=== PATIENT | male | born 1980 | race Caucasian/White ===

== ENCOUNTER 2020-06-26 22:23 | Emergency (ER) | payer BC, SELFPAY ==
[2020-06-26] VITALS (12 sets, daily range): BP systolic 113–136; BP diastolic 81–99; PULSE 85–96; RESP 16–28; TEMP 36.7; O2SAT 95–100
--- NOTE | ~2020-06-26 | XR_ITS ---
EXAMINATION: XR chest 1V portable DATE: 06/26/2020 22:47 INDICATION: Chest pain. Left arm pain. TECHNIQUE: A single frontal view of the chest was obtained. COMPARISON: None. FINDINGS: The chest demonstrates clear lungs without pneumonia, pleural effusion, or pneumothorax. Th e heart size is normal. IMPRESSION: 1. No acute cardiopulmonary disease. Reviewed, dictated and finalized at location A. R PROFESSIONAL ENGINEER
--- NOTE | 2020-06-26 22:26 | ECG_ITS ---
Measurements Intervals [place] Rate: 85 P: 59 IA: 112 QRS: 37 QRSD: 106 T: -2 QT: 343 QTc: 410 Interpretive Statements SINUS RHYTHM WITH SHORT IA INTERVAL MINIMAL Q WAVES- INFERIOR LEADS NONSPECIFIC T-WAVE ABNORMALITY- INFERIOR LEADS BASELINE WANDER- III, AVF, V4-V6 BORDERLINE ECG Electronically Signed On 06-27-2020 6:47:22 [employer]OT TAG INSERTER by Tarun Lema D.O.
[2020-06-26 22:42] LABS: Basophils Absolute Auto 0.1 K/mm3 (0.0-0.1); Basophils Percent Auto 0.5 % (0.2-1.2); Eosinophils Absolute Auto 0.1 K/mm3 (0-0.3); Eosinophils Percent Auto 1.3 % (0-4.4); Hematocrit 45.6 % (42.0-52.0); Hemoglobin 15.2 g/dL (14.0-18.0); Immature Granulocyte Absolute 0.04 K/mm3 (0.00-0.031); Immature Granulocyte Percent A 0.4 % (0-0.5); Lymphocytes Absolute Auto 3.29 K/mm3 (0.9-3.2); Lymphocytes Percent Auto 32.2 % (18.3-44.2); Mean Corpuscular HGB Conc 33.3 g/dl (32-36); Mean Corpuscular Hemoglobin 28.3 pg (26-34); Mean Corpuscular Volume 84.9 fl (80-100); Mean Platelet Volume 9.1 fl (7.4-10.4); Monocytes Percent Auto 10.1 % (2.6-8.5); Neutrophils Absolute Auto 5.7 K/mm3 (1.3-6.7); Neutrophils Percent Auto 55.5 % (45.5-73.1); Platelet Count Result 276 k/mm3 (150-375); Red Blood Count 5.37 M/mm3 (4.6-6.20); Red Cell Distribution Width 13.2 % (11.5-14.5); White Blood Count 10.2 K/mm3 (4.5-10.0)
--- NOTE | 2020-06-26 22:42 | ED.GENADULT ---
HPI - General Adult General Chief complaint: Extremity Injury, Upper Stated complaint: pains in left arm x couple days Time Seen by Provider: 06/26/20 22:29 Source: patient Mode of arrival: ambulatory Limitations: no limitations History of Present Illness HPI narrative: A 40-year-old male comes into the emergency department today with complaints of left upper extremity pain. Patient states that he notes that he feels the pain coming from his shoulder radiating down his arm. He states that he is having some trouble describing the pain. He notes that he has no associated chest pain, shortness of breath, nausea, fatigue or diaphoresis. 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 Patient does also note that his father is from a heart attack at age 43. Related Data Allergies Allergy/AdvReac Type Severity Reaction Status Date / Time HYDROCODONE BIT Allergy Mild itching Uncoded 06/26/20 22:37 Review of Systems Review of Systems: Narrative: CONSTITUTIONAL: Denies fever, chills, or sweats. EYES: Denies visual changes, redness, or discharge. ENT: Denies rhinorrhea, congestion, sore throat, or otalgia. CARDIOVASCULAR: Denies chest pain, palpitations, or edema. RESPIRATORY: Denies cough or dyspnea. GASTROINTESTINAL: Denies abdominal pain, nausea, vomiting, or diarrhea. GENITOURINARY: Denies dysuria or hematuria. SKIN: Denies rash or itching. MUSCULOSKELETAL: Denies back pain, joint pain, or myalgia. Endorses left upper extremity pain NEUROLOGIC: Denies headache, numbness, dizziness, or weakness. PSYCHIATRIC: Denies anxiety or depression. [facility] Family History Family History Father Family history of elevated blood lipids Family history of coronary artery disease, Onset Age: 43 Patient's father is Mother Hypertension Social History Social History Smoking status: Never smoker Alcohol intake: current Drinks per week: 4 Substance use: never Substance use type: does not use Gender identity (if verbalized by the patient): Male Exam Narrative: Exam Narrative: GENERAL: Well-appearing, well-nourished, and in no acute distress. HEAD: Normocephalic, atraumatic. EYES: PERRLA and EOMI. ENT: Nares clear, no rhinorrhea or epistaxis. Mucous membranes moist. NECK: Supple. No adenopathy or masses. No carotid bruits or JVD CHEST: Clear to auscultation. No respiratory distress. No wheezes rales or rhonchi HEART: Regular rate and rhythm. No murmur heard. Normal peripheral pulses. ABDOMEN: Soft, nontender, nondistended, normal active bowel sounds. EXTREMITIES: Normal range of motion. No edema. SKIN: Warm, dry, no rash. NEURO: No focal deficits. Alert and oriented x3. PSYCH: Normal mood and affect. Course Reevaluation(s) Reevaluation #1: Patient resting comfortably at this time. Reevaluated and informed him of all of his findings. Patient states that the Toradol did help his pain. He is feeling much better. Recommended strongly to the patient that he go and follow-up with his primary care physician and perhaps a industrial electrical engineer given his family history. Time: 23:49 Vital Signs Vital signs: Vital Signs Temperature 36.7 C 06/26/20 22:27 Pulse Rate 85 06/26/20 22:27 Respiratory Rate 20 06/26/20 22:27 Blood Pressure 136/99 H 06/26/20 22:27 Pulse Oximetry 98 06/26/20 22:27 Temperature 36.7 C 06/26/20 22:27 Pulse Rate 85 06/26/20 22:27 Respiratory Rate 20 06/26/20 22:27 Blood Pressure 136/99 H 06/26/20 22:27 Pulse Oximetry 98 06/26/20 22:27 Medical Decision Making MDM Narrative Medical decision making narrative: In brief this 40-year-old male came into the emergency department with complaints of what sounded like musculoskeletal left upper extremity pain. Patient did however have a hist
[2020-06-26] MEDS: KETOROLAC 30 MG/ML VIAL (*BKC) IV PUSH (22:45)
[2020-06-26 22:53] LABS: Alanine Aminotransferase 34 U/L (4-50); Albumin Level 4.4 g/dL (3.5-5.1); Alkaline Phosphatase 72 U/L (38-126); Anion Gap 7 mmol/L (8-16); Aspartate Amino Transferase 29 U/L (17-59); Blood Urea Nitrogen 15 mg/dL (9-20); Calcium 9.3 mg/dL (8.4-10.2); Carbon Dioxide 31 mmol/L (22-30); Chloride 104 mmol/L (98-107); Estimated CRCL calculation 113 ml/min; Estimated Glomerular Filt Rate > 60; Glucose 84 mg/dL (75-110); Potassium 3.8 mmol/L (3.4-5.0); Sodium 142 mmol/L (137-145)
[2020-06-26 23:05] LABS: Troponin I < 0.012 ng/mL (0.000-0.034)
[2020-06-27] VITALS: PULSE 86; RESP 17; O2SAT 98
[2020-06-27 00:01] VITALS: BP 126/80; PULSE 89; RESP 20; O2SAT 98
== END 2020-06-27 | disposition home or self-care (01) ==
PROVIDERS: Emergency Provider Emergency Medicine; PCP Family Medicine
DX: M25.512 Pain in left shoulder (principal)
CPT/HCPCS: 36415; 71045; 80053; 84484; 85025; 93005; 96374; 99284; J1885

== ENCOUNTER 2021-02-08 15:07 | Emergency (ER) | payer BC, SELFPAY ==
--- NOTE | ~2021-02-08 | CT_ITS ---
EXAMINATION: CT abdomen pelvis wo con DATE: 02/08/2021 16:56 INDICATION: Left lower quadrant abdominal pain TECHNIQUE: Computed tomography (CT) of the abdomen and pelvis was performed without intravenous contr ast. Automated exposure control and iterative reconstruction technique were employed. The dose-length product was 1205.91 mGy-cm. COMPARISON: None FINDINGS: Normal discoid atelectasis at the bilateral lung bases. Heart size is normal. No pericardial or pleur al effusion. Small sliding-type hiatal hernia. Liver, gallbladder, spleen, pancreas, bilateral adrena l glands and kidneys are normal. No urolithiasis or hydronephrosis. Bladder is normal. Mild diverticu losis with sigmoid predominance. There is prominent inflammatory stranding and a few tiny foci of ext raluminal gas along the posterior margin of the distal most descending colon consistent with divertic ulitis with microperforation. No abscess or more remote free intraperitoneal gas. Small bowel and tina endix are normal. Small fat-containing right inguinal hernia. No pathologically enlarged abdominal or pelvic lymphadenopathy. Mild to moderate bilateral hip osteoarthritis. IMPRESSION: 1. Distal descending colon diverticulitis with microperforation. Reviewed, dictated and finalized at location A.
[2021-02-08 15:14] VITALS: BP 127/76; PULSE 104; RESP 19; TEMP 36.7; O2SAT 98
[2021-02-08 15:39] LABS: Basophils Absolute Auto 0.1 K/mm3 (0.0-0.1); Basophils Percent Auto 0.4 % (0.2-1.2); Eosinophils Absolute Auto 0.2 K/mm3 (0-0.3); Eosinophils Percent Auto 1.3 % (0-4.4); Hematocrit 43.9 % (42.0-52.0); Hemoglobin 14.6 g/dL (14.0-18.0); Immature Granulocyte Absolute 0.07 K/mm3 (0.00-0.031); Immature Granulocyte Percent A 0.6 % (0-0.5); Lymphocytes Absolute Auto 2.35 K/mm3 (0.9-3.2); Lymphocytes Percent Auto 18.6 % (18.3-44.2); Mean Corpuscular HGB Conc 33.3 g/dl (32-36); Mean Corpuscular Hemoglobin 28.7 pg (26-34); Mean Corpuscular Volume 86.4 fl (80-100); Mean Platelet Volume 9.5 fl (7.4-10.4); Monocytes Absolute Auto 0.8 K/mm3 (0.1-0.6); Monocytes Percent Auto 6.7 % (2.6-8.5); Neutrophils Absolute Auto 9.2 K/mm3 (1.3-6.7); Neutrophils Percent Auto 72.4 % (45.5-73.1); Platelet Count Result 236 k/mm3 (150-375); Red Blood Count 5.08 M/mm3 (4.6-6.20); Red Cell Distribution Width 13.3 % (11.5-14.5); White Blood Count 12.6 K/mm3 (4.5-10.0)
[2021-02-08 15:51] LABS: Alanine Aminotransferase 33 U/L (4-50); Albumin Level 4.3 g/dL (3.5-5.1); Alkaline Phosphatase 82 U/L (38-126); Anion Gap 10 mmol/L (8-16); Aspartate Amino Transferase 24 U/L (17-59); Bilirubin,Total 1.7 mg/dL (0.2-1.3); Blood Urea Nitrogen 17 mg/dL (9-20); Calcium 9.6 mg/dL (8.4-10.2); Carbon Dioxide 26 mmol/L (22-30); Chloride 106 mmol/L (98-107); Estimated CRCL calculation 96 ml/min; Estimated Glomerular Filt Rate > 60; Glucose 123 mg/dL (65-110); Lipase 39 U/L (23-300); Potassium 3.6 mmol/L (3.4-5.0); Sodium 142 mmol/L (137-145)
[2021-02-08 16:07] LABS: Add Urine Microscopic? YES; Appearance Urine Clear (Clear); Bilirubin Urine Negative (Negative); Blood Urine 1+ (Negative); Color Urine Yellow (Yellow); Glucose Urine UA Negative (Negative); Ketones Urine Negative (Negative); Leukocyte Esterase Ur Negative LEU/UL (Negative); Mucus Urine Rare /lpf; Nitrate Urine Negative (Negative); Protein Urine 1+ mg/dL (Negative); Urobilinogen Urine Negative mg/dL (<2.0); WBC Urine 0-3 /hpf
[2021-02-08 16:36] VITALS: BP 135/88; PULSE 87; RESP 18; O2SAT 99
--- NOTE | 2021-02-08 16:46 | ED.ABDPAIN ---
HPI - Abdominal Pain General Chief Complaint: Abdominal Pain Stated Complaint: abd pain x 3 days Time Seen by Provider: 02/08/21 15:18 Source: patient Mode of arrival: ambulatory Limitations: no limitations History of Present Illness HPI narrative: 40-year-old male In good health Here for abdominal pain Patient states that he has had pain in his left lower abdomen that began 2 days ago on Tuesday He has also felt constipated Pain is worse with standing and moving around and better if he lays down He has not had a fever, and no nausea or vomiting No dysuria frequency or hematuria either Related Data Home Medications Medication Instructions Recorded Confirmed No Home Medications 09/30/20 09/30/20 Allergies Allergy/AdvReac Type Severity Reaction Status Date / Time HYDROCODONE BIT Allergy Mild itching Uncoded 02/08/21 15:17 Review of Systems Review of Systems: All systems reviewed & are unremarkable except as noted in HPI and below Constitutional: Constitutional: Reports no additional constitutional complaints, Denies chills, Denies fever(s) and Denies headache(s) Eyes: Eyes: Reports no additional eye complaints and Denies change in vision ENT: Denies headache(s) and Denies sore throat Cardiovascular: Cardiovascular: Denies chest pain and Denies dyspnea Respiratory: Respiratory: Denies cough and Denies dyspnea Gastrointestinal: Gastrointestinal: Reports abdominal pain, Denies bloating, Reports constipation, Denies diarrhea and Denies vomiting Genitourinary: Genitourinary: Denies dysuria and Denies urinary frequency Musculoskeletal: Musculoskeletal: Denies deformity, Denies arthralgias, Denies joint swelling and Denies numbness Integumentary/Breasts: Skin/Breast: Denies rash and Denies wounds Neurologic: Denies headache(s), Denies focal weakness and Denies numbness Psychiatric: Psychiatric: Reports no additional psychiatric complaints Endocrine: Endocrine: Reports no additional endocrine complaints Hematologic/Lymphatic: Hematologic/Lymphatic: Reports no additional hematologic/lymphatic complaints Allergic/Immunologic: Allergic/Immunologic: Reports no additional allergic/immunologic complaints [facility] Family History Family History Father Family history of elevated blood lipids Family history of coronary artery disease, Onset Age: 43 Patient's father is Alcoholism Mother Hypertension Social History Social History Smoking status: Never smoker Alcohol intake: current Drinks per week: 4 Substance use: never Substance use type: does not use Gender identity (if verbalized by the patient): Male Exam Const: General: cooperative, healthy appearing, no acute distress and alert Orientation/consciousness: patient oriented x3 (alert) HENMT: Head: normal to inspection, normocephalic and atraumatic Ears: external ears normal General nose exam: no epistaxis Eyes: Conjunctivae: conjunctivae normal EOM: EOMs intact bilaterally Neck: Neck: normal visual inspection, supple and no JVD Resp: Effort & Inspection: normal respiratory effort and not labored Auscultation: clear to auscultation bilaterally, no rales, no rhonchi, no wheezes and other (BS =) Cardio: Rate: regular rate Rhythm: regular rhythm Heart sounds: no murmurs GI: GI Palp: Yes Soft to palpation, Yes Tenderness to palpation present (GI) (Pretty well localized left lower quadrant), No Guarding due to palpation present (GI) and Yes Rebound tenderness present Back/Spine/Pelvis: Other: Percussion of left CVA causes left lower quadrant discomfort Skin: General skin exam: normal color and no rashes or lesions noted Neuro: General: patient oriented x3 (alert) and moves all extremities Speech: normal speech Extrem: General: normal to inspection and no pedal edema Psych: Affect: normal affect
[2021-02-08] MEDS: CIPROFLOXACIN 500 MG TAB PO (17:18)
[2021-02-08] MEDS: metroNIDAZOLE 250 MG TABLET 500 MG PO (17:19)
[2021-02-08 17:21] VITALS: BP 132/95; PULSE 95; RESP 18; O2SAT 100
== END 2021-02-08 17:27 | disposition home or self-care (01) ==
PROVIDERS: Emergency Provider Emergency Medicine; PCP Family Medicine
DX: K57.32 Diverticulitis of large intestine without perforation or abscess without bleeding (principal)
CPT/HCPCS: 36415; 74176; 80053; 81001; 83690; 85025; 99284; A9270

== ENCOUNTER → 2021-02-28 00:50 | Outpatient (CLI) | payer BC, SELFPAY ==
[2021-02-28 18:23] LABS: SARS-CoV-2 RNA PCR Negative
== END ==
PROVIDERS: Nurse Practitioner Family; PCP Family Medicine; Visit Provider Internal Medicine Gastroenterology
DX: R05.9 Cough, unspecified (principal); Z20.822 Contact with and (suspected) exposure to COVID-19
CPT/HCPCS: C9803; U0003; U0005

== ENCOUNTER 2021-03-04 00:47 | Day surgery (SDC) | payer BC, SELFPAY ==
[2021-02-18 13:55] VITALS: BMI 34.7
--- NOTE | 2021-03-03 13:23 | PM.HPGS ---
History of Present Illness History of Present Illness Consent: Risks, benefits, and alternatives have been discussed and questions answered. Patient agrees to proceed with procedure. Chief complaint: diverticulitis, GERD Narrative: Cezar Gomez is a 40 year old male referred for EGD and colonoscopy. He recently had an abnormal CT scan suggesting diverticulitis, when he came to the emergency room with abdominal pain. He was treated for 10 days with metronidazole and ciprofloxacin. He has chronic acid reflux symptoms as well. He particularly has symptoms if he lays down after he has been eating. Sometimes even hours later he will have regurgitation with burning. He denies dysphagia. He uses [id number] antacids but has not been on prescription medication. An uncle from esophageal cancer Review of Systems Review of Systems: All systems reviewed & are unremarkable except as noted in HPI and below PMFSH Family History Family History Father Family history of elevated blood lipids Family history of coronary artery disease, Onset Age: 43 Patient's father is Alcoholism Mother Hypertension Social History Social History Smoking status: Never smoker Alcohol intake: current Drinks per week: 4 Alcohol use details: rarely Substance use: never Substance use type: does not use Living arrangements: with family Gender identity (if verbalized by the patient): Male Spiritual care concerns: No Meds Home Medications and Allergies Home Medications Medication Instructions Recorded Confirmed Type ciprofloxacin HCl [Cipro] 500 mg PO Q12H #20 tablet 02/08/21 02/18/21 Rx metronidazole 500 mg PO Q8H 10 Days #30 tablet 02/08/21 02/18/21 Rx Allergies Allergy/AdvReac Type Severity Reaction Status Date / Time HYDROCODONE BIT Allergy Mild itching Uncoded 03/04/21 08:45 Exam Resp: Auscultation: clear to auscultation bilaterally Cardio: Rate: regular rate Rhythm: regular rhythm GI: GI Palp: Yes Soft to palpation and No Tenderness to palpation present (GI) Assessment and Plan Assessment and plan (1) Abnormal CT scan, gastrointestinal tract: Code(s): R93.3 - Abnormal findings on diagnostic imaging of other parts of digestive tract Status: Acute Assessment and Plan: Colonoscopy with possible biopsy or polypectomy or cautery or injection of substances. (2) GERD (gastroesophageal reflux disease): Code(s): K21.9 - Gastro-esophageal reflux disease without esophagitis Status: Acute Assessment and Plan: EGD with possible biopsy or dilatation or cautery.
[2021-03-04 08:46] VITALS: BP 123/83; PULSE 96; RESP 16; TEMP 36.6; O2SAT 98; BMI 34.0
[2021-03-04] MEDS: LACTATED RINGERS 1,000 ML 150 ML IV CONT (08:54)
--- NOTE | 2021-03-04 10:15 | P.PNAN_ITS ---
Anes - Initial Pre Proc Eval Procedure: Operation Date: 03/04/21 10:30 Proposed Procedures p Esophagogastroduodenoscopy & Colonoscopy - Chino Odonnell MD Date/Time: 03/04/21 10:15 Surgeon: Chino Odonnell MD Pre Op Diagnosis: diverticulitis, GERD Patient Data Age: 40 Gender: M Height: 1.83 m Weight: 114 kg Last Vital Signs Temp 98 F 03/04/21 08:46 Pulse 96 03/04/21 08:46 Resp 16 03/04/21 08:46 BP 123/83 03/04/21 08:46 Pulse Ox 98 03/04/21 08:46 Allergies Allergy/AdvReac Type Severity Reaction Status Date / Time HYDROCODONE BIT Allergy Mild itching Uncoded 03/04/21 08:45 Home Medications Medication Instructions Recorded Confirmed Type ciprofloxacin HCl [Cipro] 500 mg PO Q12H #20 tablet 02/08/21 02/18/21 Rx metronidazole 500 mg PO Q8H 10 Days #30 tablet 02/08/21 02/18/21 Rx Patient hx anesthesia problems: none Family hx anesthesia problems: none Results Review: All pre-operative results and documents have been reviewed as part of the pre-operative evaluation. [facility] Past Medical History Medical History (Updated 03/04/21 @ 10:10 by Stefan Grubbs MD) Anxiety Depression GERD (gastroesophageal reflux disease) Hyperlipidemia Family History Family History Father Family history of elevated blood lipids Family history of coronary artery disease, Onset Age: 43 Patient's father is Alcoholism Mother Hypertension Social History Social History Smoking status: Never smoker Alcohol intake: current Drinks per week: 4 Alcohol use details: rarely Substance use: never Substance use type: does not use Living arrangements: with family Gender identity (if verbalized by the patient): Male Spiritual care concerns: No Anes - Eval Final PreProcedure Day of Procedure 03/04/21 10:15 Patient weight: obese Heart: regular rate and rhythm Lungs: clear to auscultation Airway: Mallampati scale class II Neurological: alert and oriented Last oral intake: >/= 8 hours ASA classification: III Emergent: no Anesthetic plan: proceed Anesthesia type and monitoring: general GIVS and standard monitoring Results Review: All pre-operative results and documents have been reviewed as part of the pre-operative evaluation. Informed Consent: The patient's anesthetic plan and its attendant risks and benefits were discussed with the patient/family/POA. Questions were solicited and answers provided to the satisfaction of the patient/family/POA.
[2021-03-04] MEDS: BENZOCAINE (*SP) 60 ML SPRAY CAN (HURRICAINE) 1 SPRAY MUCOUS MEM (10:25)
--- NOTE | 2021-03-04 10:40 | SUR.OPER ---
EGD end time-1033 Colonoscopy start time-1040
[2021-03-04 10:51] VITALS: BP 98/57; PULSE 88; RESP 21; O2SAT 95
[2021-03-04 11:01] VITALS: BP 126/72; PULSE 84; RESP 17; O2SAT 99
[2021-03-04 11:11] VITALS: BP 105/73; PULSE 79; RESP 16; O2SAT 99
== END 2021-03-04 11:26 | disposition home or self-care (01) ==
PROVIDERS: PCP Family Medicine; Visit Provider Internal Medicine Gastroenterology
PROC: 0DJ08ZZ Inspection of Upper Intestinal Tract, Via Natural or Artificial Opening Endoscopic (ICD-10-PCS; CPT 43235; principal; 2021-03-04 10:30)
DX: K57.32 Diverticulitis of large intestine without perforation or abscess without bleeding (principal); K57.30 Diverticulosis of large intestine without perforation or abscess without bleeding; K21.00 Gastro-esophageal reflux disease with esophagitis, without bleeding; F41.8 Other specified anxiety disorders; E78.5 Hyperlipidemia, unspecified; E66.9 Obesity, unspecified; Z68.34 Body mass index [BMI] 34.0-34.9, adult
CPT/HCPCS: 45378; 43239; 87081; 88305; J2001; J2704; J7120

== ENCOUNTER → 2021-05-09 01:03 | Outpatient (CLI) | payer BC, SELFPAY ==
[2021-05-09 22:40] LABS: SARS-CoV-2 RNA PCR Negative
== END ==
PROVIDERS: PCP Family Medicine; Visit Provider Internal Medicine Gastroenterology
DX: Z01.812 Encounter for preprocedural laboratory examination (principal); Z20.822 Contact with and (suspected) exposure to COVID-19
CPT/HCPCS: C9803; U0003; U0005

== ENCOUNTER 2021-05-13 00:16 | Day surgery (SDC) | payer BC, SELFPAY ==
[2021-04-28 08:46] VITALS: BMI 33.5
--- NOTE | 2021-05-11 11:58 | PM.HPGS ---
History of Present Illness History of Present Illness Consent: Risks, benefits, and alternatives have been discussed and questions answered. Patient agrees to proceed with procedure. Chief complaint: erosive esophagitis Narrative: Cezar Gomez is a 41 year old male was found to have severe erosive esophagitis 2 months ago. He has been taking pantoprazole daily. Returns for follow-up to assess healing and to rule out Umaña's mucosa. Although he has been taking his pantoprazole, he continues have episodes of regurgitation, particularly the 1st 30 minutes or so at night when he lies down. Certain foods, such as chocolate ice cream and corn chips cause worse symptoms. His father suffered from severe acid reflux and his paternal uncle from cancer of the esophagus Review of Systems Review of Systems: All systems reviewed & are unremarkable except as noted in HPI and below PMFSH Past Medical History Medical History Anxiety Depression GERD (gastroesophageal reflux disease) Hyperlipidemia Normal esophagogastroduodenoscopy (EGD) Family History Family History Father Family history of elevated blood lipids Family history of coronary artery disease, Onset Age: 43 Patient's father is Alcoholism Mother Hypertension Social History Social History Smoking status: Never smoker Alcohol intake: current Drinks per week: 4 Alcohol use details: rarely Substance use: never Substance use type: does not use Living arrangements: with family Gender identity (if verbalized by the patient): Male Spiritual care concerns: No Meds Home Medications and Allergies Home Medications Medication Instructions Recorded Confirmed Type ciprofloxacin HCl [Cipro] 500 mg PO Q12H #20 tablet 02/08/21 04/28/21 Rx metronidazole 500 mg PO Q8H 10 Days #30 tablet 02/08/21 04/28/21 Rx pantoprazole 40 mg PO QAM #30 tablet 03/04/21 04/28/21 Rx rosuvastatin 10 mg PO DAILY 04/28/21 04/28/21 History Allergies Allergy/AdvReac Type Severity Reaction Status Date / Time HYDROCODONE BIT Allergy Mild itching Uncoded 05/13/21 06:28 Exam Const: General: alert Orientation/consciousness: patient oriented x3 Resp: Auscultation: clear to auscultation bilaterally Cardio: Rhythm: regular rhythm GI: GI Palp: Yes Soft to palpation and No Tenderness to palpation present (GI) Neuro: General: patient oriented x3 Assessment and Plan Assessment and plan (1) Erosive esophagitis: Code(s): K22.10 - Ulcer of esophagus without bleeding Status: Acute Assessment and Plan: EGD with possible biopsy or dilatation or cautery.
[2021-05-13 06:30] VITALS: BP 146/88; PULSE 88; RESP 20; TEMP 36.1; O2SAT 99
[2021-05-13] MEDS: LACTATED RINGERS 1,000 ML 30 ML IV CONT (06:34)
--- NOTE | 2021-05-13 06:51 | WPDANESEPPF ---
Anes - Initial Pre Proc Eval Procedure: Operation Date: 05/13/21 07:30 Proposed Procedures p Esophagogastroduodenoscopy - Chino Odonnell MD Date/Time: 05/13/21 06:51 Surgeon: Chino Odonnell MD Pre Op Diagnosis: erosive esophagitis Patient Data Age: 41 Gender: M Height: 1.85 m Weight: 119.4 kg Last Vital Signs Temp 36.1 C L 05/13/21 06:30 Pulse 88 05/13/21 06:30 Resp 20 05/13/21 06:30 BP 146/88 H 05/13/21 06:30 Pulse Ox 99 05/13/21 06:30 Allergies Allergy/AdvReac Type Severity Reaction Status Date / Time HYDROCODONE BIT Allergy Mild itching Uncoded 05/13/21 06:28 Home Medications Medication Instructions Recorded Confirmed Type ciprofloxacin HCl [Cipro] 500 mg PO Q12H #20 tablet 02/08/21 04/28/21 Rx metronidazole 500 mg PO Q8H 10 Days #30 tablet 02/08/21 04/28/21 Rx pantoprazole 40 mg PO QAM #30 tablet 03/04/21 04/28/21 Rx rosuvastatin 10 mg PO DAILY 04/28/21 04/28/21 History Patient hx anesthesia problems: none Family hx anesthesia problems: none Results Review: All pre-operative results and documents have been reviewed as part of the pre-operative evaluation. [facility] Past Medical History Medical History (Updated 05/13/21 @ 06:51 by Dakotah Kumar MD) Anxiety Depression GERD (gastroesophageal reflux disease) Hyperlipidemia Normal esophagogastroduodenoscopy (EGD) Family History Family History Father Family history of elevated blood lipids Family history of coronary artery disease, Onset Age: 43 Patient's father is Alcoholism Mother Hypertension Social History Social History Smoking status: Never smoker Alcohol intake: current Drinks per week: 4 Alcohol use details: rarely Substance use: never Substance use type: does not use Living arrangements: with family Gender identity (if verbalized by the patient): Male Spiritual care concerns: No Anes - Eval Final PreProcedure Day of Procedure 05/13/21 06:51 Patient weight: obese Heart: regular rate and rhythm Lungs: clear to auscultation Airway: Mallampati scale class II Neurological: alert and oriented Last oral intake: >/= 8 hours ASA classification: III Emergent: no Anesthetic plan: proceed Anesthesia type and monitoring: general GIVS and standard monitoring Results Review: All pre-operative results and documents have been reviewed as part of the pre-operative evaluation. Informed Consent: The patient's anesthetic plan and its attendant risks and benefits were discussed with the patient/family/POA. Questions were solicited and answers provided to the satisfaction of the patient/family/POA.
[2021-05-13 07:37] VITALS: BP 120/76; PULSE 84; RESP 20; O2SAT 96
[2021-05-13 07:47] VITALS: BP 124/92; PULSE 81; RESP 22; O2SAT 99
[2021-05-13 07:57] VITALS: BP 128/99; PULSE 75; RESP 20; O2SAT 100
== END 2021-05-13 08:06 | disposition home or self-care (01) ==
PROVIDERS: PCP Family Medicine; Visit Provider Internal Medicine Gastroenterology
PROC: 0DJ08ZZ Inspection of Upper Intestinal Tract, Via Natural or Artificial Opening Endoscopic (ICD-10-PCS; CPT 43235; principal; 2021-05-13 07:30)
DX: Z09 Encounter for follow-up examination after completed treatment for conditions other than malignant neoplasm (principal); K21.00 Gastro-esophageal reflux disease with esophagitis, without bleeding; K44.9 Diaphragmatic hernia without obstruction or gangrene; E78.5 Hyperlipidemia, unspecified; F41.8 Other specified anxiety disorders; E66.9 Obesity, unspecified; Z68.34 Body mass index [BMI] 34.0-34.9, adult
CPT/HCPCS: 43239; 88305; J2704; J7120

== ENCOUNTER 2021-06-02 09:05 | Outpatient (CLI) | payer BC, SELFPAY ==
--- NOTE | ~2021-06-02 | XR_ITS ---
EXAMINATION: XR UGI w barium swallow DATE: 06/02/2021 09:50 INDICATION: Reflux post lifting and occasionally while sitting TECHNIQUE: The patient drank thick barium, gas-producing crystals, and thin barium. A total of 945 fl uoroscopic images of the esophagus, stomach, and proximal small bowel were obtained. Fluoroscopy expo sure time was 2.2 minutes. Total DAP was 23.9 mGycm^2 COMPARISON: None. FINDINGS: The esophagus is normal without mass or stricture. Esophageal motility is normal. There is a small sliding-type hiatal hernia with the esophageal B ring at the gastroesophageal junction positi on approximately 3 cm above level of the diaphragm. There is reflux of contrast up to 5 cm above leve l of the diaphragm with provocative maneuvers. The gastroesophageal junction at this time is difficul t to discern and suspected that this remains within the stomach with a couple centimeter more cephala d extension of the gastroesophageal junction. The stomach and proximal small bowel are otherwise norm al. IMPRESSION: 1. Small sliding-type hiatal hernia with reflux of contrast into the intrathoracic portion of the sto mach with provocative maneuvers. Reviewed, dictated and finalized at location A. GEMENT ACCOUNTANT IMPRESSION: 1. Small sliding-type hiatal hernia with reflux of contrast into the intrathora cic portion of the stomach with provocative maneuvers.
== END 2021-06-02 09:06 | disposition home or self-care (01) ==
PROVIDERS: PCP Family Medicine; Visit Provider Surgery
DX: K21.00 Gastro-esophageal reflux disease with esophagitis, without bleeding (principal); K44.9 Diaphragmatic hernia without obstruction or gangrene
CPT/HCPCS: 74240